=== PATIENT | female | born 1960 | race Caucasian/White ===

== ENCOUNTER 2017-08-26 14:59 | Emergency (ER) | payer MEDICARE ==
--- NOTE | 2017-08-26 16:03 | UC ---
Back Pain HPI - HPI Summary HPI Summary: 56 y/o female presents to the urgent care c/o upper back pain between the shoulder and lower back pain that radiates to the tights for the past 3 days. Pt reports she had neck surgery in 1197 and 2007 and a plate was placed on C3- 4 and C4-5. She states she has chronic back. Dr Rousseau is her PCP and whoo has been managing her medical issues since she move to [place]. However she couldn't get a appt with him until 09/11/2017. Her pain has gotten worse, is 9/10 kenneth and with numbness and tingling over Rt arm. [facility] also states she has Hx of fibromyalgia. She hasn't done any images of her back since 2007. Pt denies fever , SOB, chest pain, abdominal pain, N/V/d, urinary problem, saddle anesthesia or fecal or urinary incontinence. - History of Current Complaint Chief Complaint: UCUpperExtremity Stated Complaint: BACK AND SIDE PAIN Time Seen by Provider: 08/26/17 15:46 Hx Obtained From: Patient Hx Last Menstrual Period: menopausal ?: No Onset/Duration: Gradual Onset, Lasting Days - 3 days, Still Present Timing: Constant Severity Initially: Mild Severity Currently: Severe Pain Intensity: 9 Pain Scale Used: 0-10 Numeric Back Pain: Is Discrete @ - neck pain and lower back pain Character: Sharp, Spasmodic Aggravating Factor(s): Movement, Lifting Alleviating Factor(s): Rest, OTC Meds Associated Signs And Symptoms: Positive: Numbness, Tingling - RT arm, Pain with Weight Bearing. Negative: Swelling, Redness, Fever, Abdominal Pain, Flank Pain , Bladder Incontinence, Bowel Incontinence - Risk Factors AAA Risk Factors: Negative TAD Risk Factors: Negative Cauda Equina Risk Factors: Negative Epidural Abscess Risk Factors: Negative - Allergies/Home Medications Allergies/Adverse Reactions: Allergies Allergy/AdvReac Type Severity Reaction Status Date / Time Acetaminophen [From Percocet] Allergy Rash And Verified 09/26/15 11:16 Itching Oxycodone [From Percocet] Allergy Rash And Verified 09/26/15 11:16 Itching Penicillins Allergy Rash And Verified 09/26/15 11:16 Itching Latex Allergy See Comment Uncoded 09/26/15 11:18 PMH/Surg Hx/FS Hx/Imm Hx Previously Healthy: Yes Endocrine History: Diabetes Other Endocrine History: fibromyalgia Cardiovascular History: Hypertension Psychological History: Anxiety - Surgical History Surgical History: Yes Surgery Procedure, Year, and Place: 3 C section, Carpal Tal x2, neck surgery , gallbladder - Family History Known Family History: Positive: Cardiac Disease, Hypertension, Diabetes Family History: lung cancer - Social History Occupation: Unemployed Lives: With Family Alcohol Use: None Substance Use Type: None Smoking Status (MU): Light Every Day Tobacco Smoker Type: Cigarettes Amount Used/How Often: 1/2 ppd Length of Time of Smoking/Using Tobacco: 44 years Have You Smoked in the Last Year: Yes - Immunization History Hx Tetanus, Diphtheria Vaccination: Yes Review of Systems Constitutional: Negative Skin: Negative Eyes: Negative ENT: Negative Respiratory: Negative Cardiovascular: Negative Gastrointestinal: Negative Genitourinary: Negative Motor: Negative Neurovascular: Negative Musculoskeletal: Other: - neck pain, lower back pain Neurological: Numbness - RT arm Psychological: Negative Is Patient Immunocompromised?: No All Other Systems Reviewed And Are Negative: Yes Physical Exam Triage Information Reviewed: Yes Vital Signs: Initial Vital Signs Temp 97.9 F 08/26/17 15:03 Pulse 83 08/26/17 15:03 Resp 18 08/26/17 15:03 BP 138/106 08/26/17 15:03 Pulse Ox 100 08/26/17 15:03 - Additional Comments General: Patient is a well developed female without any distress that is laying comfortably in the chair Skin: [place], warm, dry HEAD AND FACE: No signs of trauma. EYES: PERRLA, EOMI x 2. EARS: Hearing grossly intact. MOUTH: Oropharynx within normal limits. NECK: Supple, trachea is midline, no adenopathy, no JVD. CHEST: Symmetric, no tenderness at palpation LUNGS: CTA bilaterally, no rales, rhonchi or wheezing CVS: RRR, no murmur, rub, or gallop ABDOMEN: soft and Nontender without masses, no guarding or rebound. Bowel sounds are active. No Hepato-splenomegaly. No signs of inguinal hernias. BACK: Patient walked into the urgent care room with symmetric ambulation, No signs of limping, antalgic, able to bear weight. No signs of trauma, no soft tissue Point tenderness at the level of C4-5, no swelling or ecchymosis observed. decrease ROM of neck dur to pain. Paraspinal muscles over T2-3 and point tenderness over the L4-5 and S1. No CVAT, no flank ecchymosis . No sacroiliac notch tenderness, No saddle anesthesia. Decrese ROM of lower back due to pain. unable to perform leg raise test. Patellar reflexes: brisk, symmetric Muscle strength lower extremities. Dorsiflexion/ plantar flexion of ankles. Lower extremities: Femoral, popliteal, posterior tibial, and dorsalis pedis pulses with in normal, Rectal: Patient refused the exam. Neurological: WNL Psychological: WNL Skin: dry and warm Back Pain Course/Dx - Course Course Of Treatment: 56 y/o female presents to the urgent care c/o upper back pain between the shoulder and lower back pain that radiates to the tights for the past 3 days. Pt reports she had neck surgery in 1197 and 2007 and a plate was placed on C3-4 and C4-5. She states she has chronic back. Dr Rousseau is her PCP and whoo has been managing her medical issues since she move to [place]. However she couldn't get a appt with him until 09/11/2017. Her pain has gotten worse, is 9/10 kenneth and with numbness and tingling over Rt arm. [facility] also states she has Hx of fibromyalgia. She hasn't done any images of her back since 2007. Pt denies fever, SOB, chest pain, abdominal pain, N/V/d, urinary problem, saddle anesthesia or fecal or urinary incontinence.Hx obtained. Cervical spine and lumbar spine X-ray ordered. Cervical spine impression: anterior cervical fusion C4C6, minor degenerative disease and no evidence of hardware failure. Lumbar spine Impression: Moderate osteoarthritis and DDD at L4L- and L5-S1. Pt given toradol IM inj for pain,. Pt tolerated well IM inj and pain decrease and she felt better. ic. Given by nurse. Pt tolerated well medication pain decrease. Pt Rx Naproxen PO, and Medrol dose jimenez and given a PT referral. Patient was instructed to f/u wit orthopedic and Dr Barahona for furthe management. However strongly advised if pain became severe to go immediately to the ER for further treatment. Patient is able to ambulate freely. BP is elevated today, advised to decrease salt in diet and f/u with PCP. Plan of care was discussed with the patient and patient understands and agrees. All questions were answered at patient satisfaction. Pt left clinic hemodynamically stable. - Differential Dx/Diagnosis Differential Diagnosis/HQI/PQRI: Arthritis, Cauda Equina Syndrome, Compressive Cord Syndrome, Fracture, Herniated Disc, Osteoporosis, Strain Provider Diagnoses: 1- acute lower back pain. 2-Acute neck pain. 3- Degenerative disc disease. 4- Osteorthritis. 5- Uncontrolled HTN Discharge - Discharge Plan Condition: Stable Disposition: HOME Prescriptions: Methylprednisolone [Medrol Dosepak 4 MG*] 4 mg PO .SEE JIMENEZ INSTRUCTION #1 jimenez Naproxen [Naproxen 500 mg] 500 mg PO Q8H PRN #30 tab PRN Reason: Pain Patient Education Materials: Osteoarthritis (ED), Acute Low Back Pain (ED), Degenerative Disc Disease (ED) Referrals: Celso Israel MD [Medical Doctor] - 1 Week Kelton Ramos MD [Primary Care Provider] - 1 Week Additional Instructions: 1- Please take Naproxen PO as directed after meals for pain. 2- Wear a back support. Avoid strenuous exercise of heavy lifting. 3- Please follow up with Orthopedic Dr Israel or your PCP in 1 week if not improvement of symptoms, for further management. 4- f/u Physical therapy for further evaluation and treatment 5- Your BP is elevated today, please decrease salt in diet, monitor BP and f/u with PCP for further management
[2017-08-26] MEDS ORDERED: Ketorolac INJ* 60 MG/2 ML VIAL IM ONE (16:14)
--- NOTE | 2017-08-26 16:49 | RAD ---
INDICATION: Neck pain COMPARISON: Cervical spine January 23, 2009 TECHNIQUE: Routine five-view imaging was performed FINDINGS: Bones: There are no acute bony findings. There are minor osteocytic changes both above and below the level of fusion which is at C4-C6. There is no evidence of hardware failure. The anterior plate and screws and bony fusion appear intact Craniocervical junction: The odontoid and atlantodental interval are normal. Alignment: Normal Disc spaces: Minor narrowing above and below the levels of fusion. Soft tissues: The prevertebral soft tissues are normal. IMPRESSION: ANTERIOR CERVICAL FUSION C4-C6. NO EVIDENCE OF HARDWARE FAILURE. MINOR DEGENERATIVE CHANGES.
--- NOTE | 2017-08-26 16:50 | RAD ---
INDICATION: Acute back pain COMPARISON: None TECHNIQUE: AP and lateral views were obtained . FINDINGS: Bones: There are no acute bony findings. There are arthritic changes with disc space narrowing at L4-L5 and L5-S1 with marginal osteophyte formation and facet arthropathy. Alignment: Normal Disc spaces: The disc remaining spaces are well-maintained Soft tissues: There are no soft tissue abnormalities. IMPRESSION: MODERATE OSTEOARTHRITIS/DEGENERATIVE DISC DISEASE L4-L5 AND L5-S1
[2017-08-26 17:22] VITALS: BP 125/92
== END 2017-08-26 17:30 | disposition home or self-care (01) ==
LOC: UCEAST 14:59
DX: M54.5 Low back pain (principal); M54.2 Cervicalgia; M51.36 Other intervertebral disc degeneration, lumbar region; M51.37 Other intervertebral disc degeneration, lumbosacral region; M47.816 Spondylosis without myelopathy or radiculopathy, lumbar region; M47.817 Spondylosis without myelopathy or radiculopathy, lumbosacral region; I10 Essential (primary) hypertension; E11.9 Type 2 diabetes mellitus without complications; M79.7 Fibromyalgia; F41.9 Anxiety disorder, unspecified; Z90.49 Acquired absence of other specified parts of digestive tract; Z88.5 Allergy status to narcotic agent; Z88.0 Allergy status to penicillin; Z88.6 Allergy status to analgesic agent; Z91.040 Latex allergy status; F17.210 Nicotine dependence, cigarettes, uncomplicated
CPT/HCPCS: 72050; 72100; 81003; 99212; G0463; J1885

== ENCOUNTER 2018-06-17 16:57 | Emergency (ER) | payer MEDICARE, OTHER ==
[2018-06-17 17:33] VITALS: BP 157/118
--- NOTE | 2018-06-17 17:57 | UC ---
Respiratory Complaint HPI - HPI Summary HPI Summary: The patient is a 57 year old female presenting to the with a respiratory complaint. She states she has a burning in her middle back, a painful, scratchy , burning throat with an unproductive cough, feels hot, and has pain with deep breaths. She states she has a hx of bronchitis, pneumonia, HTN, fibromyalgia, anxiety, and hip pain. She is a smoker, but denies any hx of asthma or COPD, any alcohol or drug use. She has a fhx of HTN on her mothers side, and has had carpal tunnel surgery and two neck surgeries. - History of Current Complaint Chief Complaint: UCRespiratory Stated Complaint: COUGH,ST,SINUS PAIN Time Seen by Provider: 06/17/18 17:39 Hx Obtained From: Patient Hx Last Menstrual Period: menopausal ?: No Onset/Duration: Gradual Onset, Still Present Severity Initially: Moderate Severity Currently: Moderate Pain Intensity: 7 Pain Scale Used: 0-10 Numeric Character: Cough: Nonproductive Aggravating Factors: Exertion, Deep Breaths Alleviating Factors: Nothing Associated Signs And Symptoms: Positive: Fever, Nasal Congestion - Allergies/Home Medications Allergies/Adverse Reactions: Allergies Allergy/AdvReac Type Severity Reaction Status Date / Time acetaminophen Allergy Rash And Verified 06/17/18 18:30 Itching oxycodone Allergy Rash And Verified 06/17/18 18:30 Itching Penicillins Allergy Rash And Verified 06/17/18 18:30 Itching Latex Allergy See Comment Uncoded 09/26/15 11:18 PMH/Surg Hx/FS Hx/Imm Hx Previously Healthy: No - other hx of fibromyalgia Cardiovascular History: Hypertension Respiratory History: COPD - negative, Asthma - negative, Bronchitis, Pneumonia Psychological History: Anxiety - Surgical History Surgical History: Yes Surgery Procedure, Year, and Place: 3 C section, Carpal Tal x2, neck surgery , gallbladder - Family History Known Family History: Positive: Cardiac Disease, Hypertension, Diabetes Family History: lung cancer - Social History Alcohol Use: None Substance Use Type: None Smoking Status (MU): Light Every Day Tobacco Smoker Type: Cigarettes Amount Used/How Often: 1/2 ppd Length of Time of Smoking/Using Tobacco: 44 years Have You Smoked in the Last Year: Yes - Immunization History Hx Tetanus, Diphtheria Vaccination: Yes Review of Systems Constitutional: Fever ENT: Sore Throat Respiratory: Cough Musculoskeletal: Myalgia - mid-back All Other Systems Reviewed And Are Negative: Yes Physical Exam - Summary Physical Exam Summary: VITAL SIGNS: Reviewed. GENERAL: Patient is a well-developed and nourished female who is sitting comfortably. Patient is in mild acute respiratory distress. HEAD AND FACE: Normocephalic EYES: PERRLA, EOMI x 2. EARS: Hearing grossly intact. MOUTH: Oropharynx within normal limits. NECK: Supple, trachea is midline, no adenopathy, no JVD, no carotid bruit. CHEST: Symmetric, no tenderness at palpation LUNGS: Clear to auscultation bilaterally. Positive bilateral crackles CVS: Regular rate and rhythm, S1 and S2 present, no murmurs or gallops appreciated. ABDOMEN: Soft, non-tender. Bowel sounds are normal. No abdominal abnormal pulsations. EXTREMITIES: Full ROM in all major joints, no edema, no cyanosis or clubbing. NEURO: Alert and oriented x 3. No acute neurological deficits. Speech is normal and follows commands. SKIN: Dry and warm Triage Information Reviewed: Yes Vital Signs: Initial Vital Signs Temp 98.1 F 06/17/18 17:28 Pulse 70 06/17/18 17:28 Resp 20 06/17/18 17:28 BP 157/118 06/17/18 17:28 Pulse Ox 97 06/17/18 17:28 Vital Signs Reviewed: Yes UC Diagnostic Evaluation - Laboratory O2 Sat by Pulse Oximetry: 97 - Radiology Xray Interpretation: No Acute Changes - Negative for acute cardiopulmonary disease. Radiology Interpretation Completed By: ED Physician - Results pending radiologist review. Respiratory Course/Dx - Course Course Of Treatment: This patient is a 57-year-old female who presents to the urgent care with chief complaint of productive cough, body aches, questionable fevers, chills for the last couple days. The patient is a nonsmoker. Chest x- ray shows no pneumonia. I believe that the patient may be dealing with bronchitis however believe that the patient would benefit of antibiotics as well as prednisone and an antitussive medication. Therefore the patient will be given a prescription for azithromycin, prednisone and Tessalon tablets. She will be discharged home with follow-up with primary care physician. - Differential Dx/Diagnosis Provider Diagnoses: Bronchitis Discharge - Sign-Out/Discharge Documenting (check all that apply): Patient Departure All imaging exams completed and their final reports reviewed: Yes - Discharge Plan Condition: Stable Disposition: HOME Prescriptions: Azithromyxin ARTURO (NF) [Z-Arturo (Zithromax) 250 mg tabs #6] 2 tab PO .TODAY, THEN 1 DAILY #6 tab Benzonatate CAP* [Tessalon 100 MG CAP*] 100 mg PO TID PRN #12 cap PRN Reason: Cough predniSONE [Prednisone 20 MG TAB] 20 mg PO DAILY #5 tablet Patient Education Materials: Acute Bronchitis (ED) Referrals: Kelton Ramos MD [Primary Care Provider] - Additional Instructions: Take medications as instructed and adhere to plan Take Acetaminophen or ibuprofen for pain or fever Increase your fluid intake Return to the or go to the emergency department if symptoms worsen Follow-up with primary care physician in next 2-3 days FOLLOW UP WITH YOUR PRIMARY CARE PROVIDER WITHIN ONE WEEK FOR HIGH BLOOD PRESSURE NOTED TODAY. RETURN TO URGENT CARE FOR ANY WORSENING OR NEW SYMPTOMS. - Billing Disposition and Condition Condition: STABLE Disposition: Home - Attestation Statements Document Initiated by Scribe: Yes Documenting Scribe: Monserrat Hines Provider For Whom Hayes is Documenting (Include Credential): Spenser Farris MD. Scribe Attestation: Monserrat Murillo, scribed for Spenser Farris MD. on 06/17/18 at 2123. Scribe Documentation Reviewed: Yes Provider Attestation: The documentation as recorded by the scribeMonserrat accurately reflects the service I personally performed and the decisions made by , Spenser Farris MD.
--- NOTE | 2018-06-18 07:56 | RAD ---
INDICATION: Chest heaviness, productive cough. History of tobacco use. COMPARISON: No relevant prior exams available on the [facility] PACS for comparison. TECHNIQUE: Dual energy PA and routine lateral views of the chest were obtained. REPORT: Elevated lung volumes with increased AP thoracic diameter. No focal pulmonary lesion, compelling alveolar consolidation, pleural effusion, pneumothorax. The heart, pulmonary vasculature, and mediastinal contours are unremarkable. Thoracic degenerative spondylosis. Multilevel anterior cervical fusion hardware. IMPRESSION: #. Stigmata of obstructive lung disease. No acute pulmonary or cardiac process evident. R0
== END 2018-06-17 18:25 | disposition home or self-care (01) ==
LOC: UCEAST 16:57
DX: J40 Bronchitis, not specified as acute or chronic (principal); Z88.5 Allergy status to narcotic agent; Z88.0 Allergy status to penicillin; Z88.6 Allergy status to analgesic agent; Z91.040 Latex allergy status; F17.210 Nicotine dependence, cigarettes, uncomplicated
CPT/HCPCS: 71046; 99212; G0463

== ENCOUNTER 2020-01-19 21:56 | Emergency (ER) | payer OTHER ==
[2020-01-19 23:29] LABS: Rapid Strep Molecular Negative (Negative)
[2020-01-19] MEDS ORDERED: Al Hydrox/Mg Hydrox/Simet LIQ* 30 ML UDC PO ONE (23:50)
[2020-01-19] MEDS ORDERED: Lidocaine 2% VISCOUS* 15 ML UDC PO ONE (23:50)
--- NOTE | 2020-01-20 00:01 | ED ---
Throat Pain/Nasal Congestion - HPI Summary HPI Summary: 59-year-old female presenting to [facility] with a chief complaint of pain for the last two days. She describes the pain as a burning sensation, currently rated 4/ 10 in severity. She has used Chloraseptic spray and Ibuprofen to no relief. There is some fullness in the throat and odynophagia but no dysphagia. She denies any fevers, CP, SOB, cough, nausea, or vomiting. Past medical history incudes hypertension, anxiety, depression, 3x neck surgery, cholecystectomy. Current smoker. No alcohol or substance use. Medications reviewed. Allergies noted. - History of Current Complaint Time Seen by Provider: 01/19/20 22:28 Hx Obtained From: Patient Onset/Duration: Gradual Onset, Lasting Days - 2, Still Present Severity: Moderate Associated Signs And Symptoms: Negative: Dysphagia Cough: None Related History: Smoking - Allergies/Home Medications Allergies/Adverse Reactions: Allergies Allergy/AdvReac Type Severity Reaction Status Date / Time acetaminophen Allergy Rash And Verified 05/22/19 15:19 Itching oxycodone Allergy Rash And Verified 05/22/19 15:19 Itching Penicillins Allergy Rash And Verified 05/22/19 15:19 Itching Latex Allergy See Comment Uncoded 05/22/19 15:19 Home Medications: Home Medications Triamterene/HCTZ 75-50 MG* [Maxzide 75-50*] 1 tab PO DAILY 09/26/15 [History Confirmed 01/19/20] Ibuprofen TAB* [Motrin TAB* 800 MG] 800 mg PO Q8H PRN #30 tab 05/22/19 [Rx Confirmed 01/19/20] ALPRAZolam TAB* [Xanax TAB*] 0.25 - 0.5 mg PO TID PRN 01/19/20 [History Confirmed 01/19/20] Butalb/Acetaminophen/Caffeine [Dhhfyx-Jshgsxth-Ygap 50-325-40] 1 each PO QID PRN 01/19/20 [History Confirmed 01/19/20] Carisoprodol TAB* [Soma TAB*] 350 mg PO TID PRN 01/19/20 [History Confirmed ] Gabapentin CAP(*) [Neurontin 300 CAP(*)] 300 - 900 mg PO BEDTIME 01/19/20 [ History Confirmed 01/19/20] Lisinopril TAB* [Prinivil TAB*] 10 mg PO DAILY 01/19/20 [History Confirmed 01/18] Metoprolol Tartrate TAB* [Lopressor TAB*] 100 mg PO BID 01/19/20 [History Confirmed 01/19/20] Phendimetrazine Tartrate 35 mg PO TID 01/19/20 [History Confirmed 01/19/20] PMH/Surg Hx/FS Hx/Imm Hx Endocrine/Hematology History: Denies: Hx Diabetes, Hx Thyroid Disease Cardiovascular History: Reports: Hx Hypertension Respiratory History: Denies: Hx Asthma, Hx Chronic Obstructive Pulmonary Disease (COPD) GI History: Denies: Hx Ulcer Psychiatric History: Reports: Hx Anxiety, Hx Depression - Surgical History Surgical History: Yes Surgery Procedure, Year, and Place: 3 C section, Carpal Tal x2, neck surgery , gallbladder; Infectious Disease History: Denies: Hx Hepatitis, Hx Human Immunodeficiency Virus (HIV), History Other Infectious Disease, Traveled Outside the [place] in Last 30 Days - Family History Known Family History: Positive: Cardiac Disease, Hypertension, Diabetes Family History: lung cancer - Social History Alcohol Use: None Substance Use Type: Reports: None Hx Tobacco Use: Yes Smoking Status (MU): Light Every Day Tobacco Smoker Type: Cigarettes Amount Used/How Often: 1/2 ppd Length of Time of Smoking/Using Tobacco: 44 years Have You Smoked in the Last Year: Yes - Additional Comments History Additional Comments: hypertension, anxiety, depression, 3x neck surgery, cholecystectomy Review of Systems - ROS Summary Review of Systems Summary: Home Medications Medication Instructions Recorded Confirmed Type Triamterene/HCTZ 75-50 MG* 1 tab PO DAILY 09/26/15 01/19/20 History [Maxzide 75-50*] Ibuprofen TAB* [Motrin TAB* 800 MG] 800 mg PO Q8H PRN #30 tab 05/22/19 01/19/20 Rx ALPRAZolam TAB* [Xanax TAB*] 0.25 - 0.5 mg PO TID PRN 01/19/20 01/19/20 History Butalb/Acetaminophen/Caffeine 1 each PO QID PRN 01/19/20 01/19/20 History [Fjoggd-Fkfpqdlx-Fkdn 50-325-40] Carisoprodol TAB* [Soma TAB*] 350 mg PO TID PRN 01/19/20 01/19/20 History Gabapentin CAP(*) [Neurontin 300 300 - 900 mg PO BEDTIME 01/19/20 01/19/20 History CAP(*)] Lisinopril TAB* [Prinivil TAB*] 10 mg PO DAILY 01/19/20 01/19/20 History Metoprolol Tartrate TAB* 100 mg PO BID 01/19/20 01/19/20 History [Lopressor TAB*] Phendimetrazine Tartrate 35 mg PO TID 01/19/20 01/19/20 History Negative: Fever Positive: Sore Throat, Other - pain with swallowing but no difficulty Negative: Chest Pain Negative: Shortness Of Breath, Cough Negative: Vomiting, Nausea All Other Systems Reviewed And Are Negative: Yes Physical Exam - Summary Physical Exam Summary: General: Appears older than age, Obese female. No acute distress. Not ill- appearing. HEENT: Normocephalic, Atraumatic. Eyes: Conjuctiva normal, PERRL. Oropharynx: Erythematous posteriorly, mucous membranes moist, (-) exudates. Neck: Soft, FROM, (-) lymphadenopathy, (-) thyromegaly, (-) JVD. Cardiovascular: Normal sinus rhythm, (-) murmur. Lungs: Clear to auscultation bilaterally (-) wheezes, (-) rales, (-) rhonchi. Abdomen: Soft, non-tender, non-distended, (-) organomegaly, normal bowel sounds. Back: (-) CVA tenderness Extremities: No edema. Skin: Warm, dry, (-) rash. Neuro: Alert and oriented x3, moves all extremities equally. No ataxia. No gait disturbance. No sensory deficit. Normal strength, normal sensation. Psychiatric: Mood normal, affect normal. Triage Information Reviewed: Yes Vital Signs Reviewed: Yes Procedures - Sedation Patient Received Moderate/Deep Sedation with Procedure: No Diagnostics - Laboratory Lab Results: Lab Results 01/19/20 Range/Units 23:00 Group A Strep Rapid Negative (Negative) Lab Statement: Any lab studies that have been ordered have been reviewed, and results considered in the medical decision making process. Re-Evaluation - Re-Evaluation First Eval Re-Evaluation Time: 00:40 Comment: I discussed all results and throat somewhat improved after medication. Discussed all symptoms that warrant return to the ED. EENT Course/Dx - Course Course Of Treatment: 59-year-old female presents from home with sore throat. She states today is the second day of her sore throat. Describes it as burning. Slight full feeling in the throat. A little painful when she swallows. She does not feel ill. No fevers chills. No chest pain, cough, shortness of breath. No nausea vomiting or diarrhea. On physical exam she is well appearing other than posterior oropharynx is erythematous. Rapid strep test is negative. Patient declines ibuprofen says she's been taking that at home as well as Coricidin and throat spray. She is given a GI cocktail here. Advised her to continue ibuprofen [id number] medications as needed. Also Popsicles or cold fluids. Off work until Friday. Patient will be notified if her strep culture returns positive. Otherwise follow-up with PCP. Follow sooner for any worsening symptoms. Patient received GI cocktail in the ED course. - Diagnoses Provider Diagnoses: Tobacco use, Pharyngitis - Critical Care Time Critical Care Statement: Critical care time is provided exclusive of any time spent performing procedures. Discharge ED - Sign-Out/Discharge Documenting (check all that apply): Patient Departure - Patient will be discharged home. - Discharge Plan Condition: Stable Disposition: HOME Patient Education Materials: How to Stop Smoking (ED), Pharyngitis (ED) Forms: *Work Release Referrals: Kelton Ramos MD [Primary Care Provider] - 3 Days Additional Instructions: Please eat popsicles and drink cold liquids. Also take 2 tablets of Ibuprofen 3 times a day with food. Use the throat spray you already have. Your strep test is negative. We will let you know if the cultures come back positive in 48 hours. Follow up with your primary care provider in 2-3 days. Return to the emergency department for any new or worsening symptoms. - Billing Disposition and Condition Condition: STABLE Disposition: Home - Attestation Statements Document Initiated by Scribe: Yes Documenting Scribe: Nicki Cho Provider For Whom Alexandriae is Documenting (Include Credential): Harleen Talavera MD Scribe Attestation: Nicki Murillo, scribed for Harleen Talavera MD on 01/20/20 at 0445. Scribe Documentation Reviewed: Yes Provider Attestation: The documentation as recorded by the scribe, Nicki Cho accurately reflects the service I personally performed and the decisions made by me, Harleen Talavera MD Status of [place] Document: Viewed
[2020-01-20 01:21] VITALS: BP 134/94
== END 2020-01-20 01:00 | disposition home or self-care (01) ==
LOC: ED 21:56
DX: J02.9 Acute pharyngitis, unspecified (principal); I10 Essential (primary) hypertension; F41.9 Anxiety disorder, unspecified; F32.9 Major depressive disorder, single episode, unspecified; F17.210 Nicotine dependence, cigarettes, uncomplicated; Z79.899 Other long term (current) drug therapy; Z88.0 Allergy status to penicillin; Z91.040 Latex allergy status; Z88.8 Allergy status to other drugs, medicaments and biological substances
CPT/HCPCS: 87651; 99282; A9270-GY